=== PATIENT | female | born 1975 | race Caucasian/White ===

== ENCOUNTER 2024-01-04 10:46 | Outpatient (CLI) | payer BC, SELFPAY ==
--- NOTE | ~2024-01-04 | CT_ITS ---
CT of the Abdomen and Pelvis: Indication: Abdominal pain Technique: 2.5 mm axial scans were obtained through the abdomen and pelvis following intravenous adm inistration of 100 cc of Omnipaque 350. Dose reduction technique was used on this scan by utilizing a utomated exposure control and iterative reconstruction technique. The dose-length product (DLP) was 2 85.16 mGy-cm. Findings: Scans through the lung bases are unremarkable. The liver, spleen, pancreas, gallbladder, adrenals and kidneys are within normal limits. No evidence of aortic aneurysm. No lymphadenopathy. No bowel obstruction or bowel wall thickening. There is no evidence to suggest acute appendicitis. Images through the pelvis were performed. Urinary bladder unremarkable. 3.6 cm cystic mass present in the left pelvis. No ascites. Impression: 3.6 cm presumed left ovarian cyst, versus possibly left hydrosalpinx. Reviewed, dictated and finalized at [facility]. Impression: 3.6 cm presumed left ovarian cyst, versus possibly left hydrosalpinx.
== END 2024-01-04 10:47 | disposition home or self-care (01) ==
LOC: ANHIMG 10:51
PROVIDERS: Visit Provider Nurse Practitioner Obstetrics & Gynecology
DX: R10.30 Lower abdominal pain, unspecified (principal); N83.202 Unspecified ovarian cyst, left side
CPT/HCPCS: 74177; Q9967

== ENCOUNTER 2024-09-24 09:35 | Emergency (ER) | payer OTHER, SELFPAY ==
--- NOTE | ~2024-09-24 | US_ITS ---
EXAMINATION: US transvaginal DATE: 09/24/2024 11:25 INDICATION: Abnormal vaginal bleeding. Ovarian cyst. TECHNIQUE: Multiple endovaginal sonographic images of the pelvis were obtained. COMPARISON: None. FINDINGS: The retroverted uterus measures 8.5 x 5.5 x 5.1 cm. 2.4 cm mildly hypoechoic subserosal fibroid on th e left side of the uterine body. The endometrial complex is thickened measuring 19 mm in thickness. T he endometrial complex appears symmetric throughout the extent central endometrial stripe. There are a couple anechoic cervical nabothian cysts measuring up to 7 mm. The right ovary measures 4.6 x 2.6 x 2.2 cm. There are multiple anechoic cyst anechoic cysts/follicles at the right ovary measuring up to 2.0 cm. The left ovary is not visualized. There is normal vascular flow in the ovaries. There is a s mall amount of anechoic free fluid at the left adnexa. IMPRESSION: 1. Thickened endometrial complex most likely endometrial hyperplasia with differential including less likely endometrial polyp or malignancy. Consider hysteroscopy for further evaluation. 2. 2.4 cm subserosal fibroid. Reviewed, dictated and finalized at location A. UTER NETWORKING INSTRUCTOR ADJUNCT IMPRESSION: 1. Thickened endometrial complex most likely endometrial hyperplasia with diffe rential including less likely endometrial polyp or malignancy. Consider hystero scopy for further evaluation. 2. 2.4 cm subserosal fibroid.
[2024-09-24 09:55] VITALS: BP 108/76; PULSE 77; RESP 12; TEMP 36.7; O2SAT 100
--- NOTE | 2024-09-24 10:13 | ED.FEMALEGU ---
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 She states that she started her menstrual period 9 days ago . She reports her first 7 days of her cycle she had heavy bleeding with clots. Her bleeding has eased up over the past 48 hours but she reports fatigue. She reports only on her 2nd tampon today. She reports mild lower abdominal pain /10. She denies chest pain, shortness of breath. She denies history of anemia. Her last menstrual cycle was in june so she missed July which is abnormal for her. She has not called her mortgage assistant about her issues. MD elicited complaint: vaginal bleeding Pertinent past history: other (perimenopausal) Onset (ago): day(s) (9) Female Urogenital Radiation: Suprapubic Severity scale (1-10): 1 Quality of pain: cramping Vaginal bleeding: moderate Related Data Home Medications ?Medication ?Instructions ?Recorded ?Confirmed ?Last Taken ?Type No Home Medications 02/24/24 03/01/24 Unknown History Allergies Allergy/AdvReac Type Severity Reaction Status Date / Time No Known Allergies Allergy Verified 09/24/24 09:36 Review of Systems Review of Systems: All systems reviewed & are unremarkable except as noted in HPI and below Constitutional: Constitutional: Reports fatigue Cardiovascular: Cardiovascular: Denies chest pain, Denies radiating jaw, neck or arm pain and Denies slow heart rate Respiratory: Respiratory: Denies dyspnea Gastrointestinal: Gastrointestinal: Reports abdominal pain and Reports bloating Genitourinary: Genitourinary: Reports abnormal vaginal bleeding PMFSH Past Medical History Medical History (Updated 09/24/24 @ 12:09 by Brandy Garcia MD) Patient denies medical problems Social History Social History Smoking status: Never smoker Substance use type: does not use Living arrangements: with family Spiritual care concerns: No Exam Const: General: no acute distress and alert Nutritional Appearance: well nourished Orientation/consciousness: patient oriented x3 Limitations: no limitations HENMT: Head: normal to inspection Mouth: Yes Normal oral and palatal mucosa present, Yes lip normal and Yes moist mucous membranes Eyes: EOM: EOMs intact bilaterally Neck: Neck: normal visual inspection Resp: Effort & Inspection: normal respiratory effort Auscultation: clear to auscultation bilaterally Cardio: Rate: regular rate Rhythm: regular rhythm Heart sounds: no murmurs GI: GI Palp: Yes Soft to palpation, No Tenderness to palpation present (GI), No Guarding due to palpation present (GI) and No Rigid due to palpation Auscultation: normal bowel sounds : Speculum Exam - Cervix: normal appearance of the cervix and Cervical os closed Other: mobile application 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 US shows thickened endometrium which may be hormonal but she needs to call media supervisor tomorrow for evaluation as she may need biopy to rule out malignance. She states she understands and is at bedside. Date: 09/24/24 Time: 12:06 Vital Signs Vital signs: Vital Signs Temperature 98.0 F 09/24/24 09:55 Pulse Rate 77 09/24/24 09:55 Respiratory Rate 12 09/24/24 09:55 Blood Pressure 108/76 09/24/24 09:55 Pulse Oximetry 100 09/24/24 09:55 Temperature 98.0 F 09/24/24 09:55 Pulse Rate 77 09/24/24 09:55 Respiratory Rate 12 09/24/24 09:55 Blood Pressure 108/76 09/24/24 09:55 Pulse Oximetry 100 09/24/24 09:55 MDM - Female Genitourinary MDM Narrative Medical decision making narrative: Perimenopausal with irregular cycles, Will order CBC to evaluate for anemia. And also pelvic ultrasound; US shows thickened endometrial complex so needs outpatient follow up with media supervisor. no need for transfusion. Bleeding is minimal so patient stable discharge. Differential Diagnosis Differential diagnosis: Likely ovarian cyst, dysmenorrhea and other (perimenopause, anemia) Medical Records Attestation: I reviewed the patient's medical records. Lab Data Attestation: I reviewed the patient's lab results. 09/24/24 10:59 Labs: Lab Results 09/24/24 09/24/24 Range/Units 10:59 11:26 WBC 6.9 (4.5-10.0) K/mm3 RBC 3.83 L (4.2-5.4) M/mm3 Hgb 11.7 L (12.0-15.0) g/dL Hct 34.6 L (37.0-47.0) % MCV 90.3 (80-100) fl MCH 30.5 (26-34) pg MCHC 33.8 (32-36) g/dl RDW 12.3 (11.5-14.5) % Plt Count 204 (150-375) k/mm3 MPV 10.7 H (7.4-10.4) fl Immature Gran % (Auto) 0.4 (0-0.5) % Neut % (Auto) 59.0 (45.5-73.1) % Lymph % (Auto) 29.2 (18.3-44.2) % Winkler % (Auto) 7.1 (2.6-8.5) % Eos % (Auto) 3.6 (0-4.4) % Baso % (Auto) 0.7 (0.2-1.2) % Lymph # (Auto) 2.01 (0.9-3.2) K/mm3 Winkler # (Auto) 0.5 (0.1-0.6) K/mm3 Eos # (Auto) 0.3 (0-0.3) K/mm3 Baso # (Auto) 0.1 (0.0-0.1) K/mm3 Abs Immat Gran (auto) 0.03 (0.00-0.031) K/mm3 Absolute Neuts (auto) 4.1 (1.3-6.7) K/mm3 Absolute Nucleated RBC 0.000 (0.0-0.012) K/mm3 Nucleated RBC % 0.0 (0.0-0.2) % PT 13.5 (11.1-14.7) Seconds INR 1.0 APTT 26.8 (22.3-36.8) Seconds POC Urine HCG, Qual Negative (Negative) Imaging Data Radiologist's impression: ITS Impressions Transvaginal US 09/24/24 11:35 IMPRESSION: 1. Thickened endometrial complex most likely endometrial hyperplasia with differential including less likely endometrial polyp or malignancy. Consider hysteroscopy for further evaluation. 2. 2.4 cm subserosal fibroid. Discharge Plan Discharge Clinical Impression: Abnormal vaginal bleeding Patient Disposition: Home, Self-Care Condition: Stable Instructions: Antibiotic Form, Menorrhagia (ED) Additional Instructions: Call your mortgage assistant tomorrow to arrange for follow up regarding your abnormal vaginal bleeding Patient Language: Nepali Prescriptions: No Action No Home Medications Follow-up/Referrals: Man Connor MD [Physician] - PHYSICIAN,NATURAL GAS BASIS TRADER [Primary Care Provider] -
[2024-09-24 11:06] LABS: Basophils Absolute Auto 0.1 K/mm3 (0.0-0.1); Basophils Percent Auto 0.7 % (0.2-1.2); Eosinophils Absolute Auto 0.3 K/mm3 (0-0.3); Eosinophils Percent Auto 3.6 % (0-4.4); Hematocrit 34.6 % (37.0-47.0); Hemoglobin 11.7 g/dL (12.0-15.0); Immature Granulocyte Absolute 0.03 K/mm3 (0.00-0.031); Immature Granulocyte Percent A 0.4 % (0-0.5); Lymphocytes Absolute Auto 2.01 K/mm3 (0.9-3.2); Lymphocytes Percent Auto 29.2 % (18.3-44.2); Mean Corpuscular HGB Conc 33.8 g/dl (32-36); Mean Corpuscular Hemoglobin 30.5 pg (26-34); Mean Corpuscular Volume 90.3 fl (80-100); Mean Platelet Volume 10.7 fl (7.4-10.4); Monocytes Absolute Auto 0.5 K/mm3 (0.1-0.6); Monocytes Percent Auto 7.1 % (2.6-8.5); Neutrophils Absolute Auto 4.1 K/mm3 (1.3-6.7); Platelet Count Result 204 k/mm3 (150-375); Red Blood Count 3.83 M/mm3 (4.2-5.4); Red Cell Distribution Width 12.3 % (11.5-14.5); White Blood Count 6.9 K/mm3 (4.5-10.0)
[2024-09-24 11:23] LABS: Prothrombin Time 13.5 Seconds (11.1-14.7)
[2024-09-24 11:24] LABS: Partial Thromboplastin Time 26.8 Seconds (22.3-36.8)
[2024-09-24 11:28] LABS: BEDSIDEPREGUCG Negative (Negative)
--- OUTSIDE RECORDS SUMMARY | 2024-10-01 05:28 | XMS_ITS | Data Portability ---
Author Organization [facility] Address [address] [place] [address] Assessment Encounter Date Assessment Date Assessment LastModified by Organization Details LastModified Time 09/14/2023 09/14/2023 Will complete routine labs at f[facility]u visit. [facility] Not available 09/15/2023 08:06:34 Plan of Treatment Reminders Order Date Submit Date Provider Last Modified By Organization Details Last Modified Time Details Appointments None recorded. Lab None recorded. Referral gastroenter ologist referral 2022 023 [facility], [address], [place], [address], 4 13:01:45 Procedures None recorded. Surgeries None recorded. Imaging MAMMO, screening, bilateral [address] [facility], [address], [place] [address], [place], [address], 3 12:19:47 Medication Orders None recorded. Patient TargetsNo targets recorded. Patient InstructionsNo instructions recorded. 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 Procedure Notes None recorded. Medical Equipment None Reported. Allergies No known drug allergies Medications Not known to be on any medication Vitals Date Recorded Body height Body mass index (BMI) Body weight Oxygen saturation Oxygen saturation in Arterial blood by Pulse oximetry Heart rate Respiratory rate Body temperature Systolic blood pressure Diastolic blood pressure Provider Name and Address Organization Details Last Updated DateTime 3 170.18 cm 19.6 kg/m2 14446.0 5 g 99 % 99 % 78 /min 18 /min 97.1 [degF] 112 mm[Hg] 76 mm[Hg] ANGELES Lazaro [facility] 3 10:27:10 Date Recorded Body height Body mass index (BMI) Body weight Oxygen saturation Oxygen saturation in Arterial blood by Pulse oximetry Heart rate Body temperature Systolic blood pressure Diastolic blood pressure Provider Name and Address Organization Details Last Updated DateTime 3 170.18 cm 20.1 kg/m2 31266.6 2 g 97 % 97 % 90 /min 98.3 [degF] 111 mm[Hg] 76 mm[Hg] Guy Patel MA [facility] 3 11:42:10 Date Recorded Respiratory rate Provider Name a pa Address Organization Details Last Updated DateTime 09/14/2023 18 /min JENNYFER COX Attn: [address] [place], [address], [facility] 09/14/2023 12:06:50 Social History Question Answer Notes LastModified by Organizat ion Details LastModified Time Tobacco Smoking Status Never Smoker ANGELES Lazaro null, [facility] 05/12/2023 10:28:34 What Is Your Level Of Alcohol Consumption? None Information not available 05/12/2023 What Was The Date Of Your Most Recent Tobacco Screening? 09/14/2023 [email or web address] Information not available 09/14/2023 Do You Use Any Illicit Or Recreational Drugs? No Information not available 05/12/2023 Has Tobacco Cessation Counseling Been Provided? Yes Information not available 05/12/2023 On What Date Was Tobacco Cessation Counseling Provided? 05/12/2023 Information not available 05/12/2023 Do You Or Have You Ever Used Any Other Forms Of Tobacco Or Nicotine? No Information not available 05/12/2023 Sex: Unknown Functional Status None recorded. Mental Status None recorded. Family History Relationship Description Onset Age of this Age Resolved Age Notes LastModified by Organization Details LastModified Time Father No current problems or disability [email or web address] Not available 05/12 10:28:20 Mother No current problems or disability [email or web address] Not available 05/12 10:28:20 Medical History Condition Response Coronary Artery Disease N Other N Atrial Fibrillation N High Blood Pressure N Depression N COPD N Blood Clots N Anxiety Disorder N Muscle, Joint, or Bone Problems N Acid Reflux (GERD) N Cancer N Stroke N Headaches N Kidney or Bladder Problems N Eating Disorder N Skin Problems N Asthma N Allergies N Substance Abuse N Hepatitis N ADHD N High Cholesterol N Liver Disease N Schizophrenia N Thyroid Problems N GI Problems N Anemia N Heart Attack (PR) N Diabetes N Seizures/Epilepsy N Osteoporosis N Heart Failure N Gynecological History Statement/Question Response Date of Last Mammogram Flow Light Date of LMP 08/29/2023 Menses Monthly Y Date of Last Pap Smear Duration of Flow (days) 4 Current Control Method None Age at First Child 30 LMP Approximate Obstetrics History GPAL:G 6 P 0 0 1 5 Type Value Spontaneous 1 Living 5 Total 6 Past Encounters Encounter ID Performer Location Encounter Start Date Encounter Closed Date Diagnosis/Indication Diagnosis SNOMED-CT Code Diagnosis ICD10 Code Diagnosis Note [id number] TARA Banks NP [facility] [address] [place] [address] 05/12/2023 10:24:40 05/19/2023 10:16:09 History and physical examination, pre-employment 783642479 Z02.1 -safety discussed with patient-Im munization s are UTD per patient.-W ill make eye apt.-Diet and exercise discussed- Will make dental apt.-Phone numbers provided to establish PCP and complete PAPs and other lab screenings . Pt verbalized understand ing. Body mass index less than 20 245999301 Z68.1 [id number] JENNYFER COX [facility] [address] [place] [address] 09/14/2023 11:20:44 09/15/2023 12:19:46 Patient new to provider 7275090005 91144 Z76.89 establishi ng careno concernsno medication sPEx- nl Screening for malignant neoplasm of breast 265143277 Z12.39 due for mammo Screening for malignant neoplasm of cervix 783396141 Z12.4 will schedule pap Screening for malignant neoplasm of colon 664707462 Z12.11 has not had colonoscop y Depression screening 171 958243 Z13.31 PHQ 0 Left flank pain 72558048 9 R10.9 x3 morandomdu ll achec/o mass to left side of her abdomenno associated symptomsPE x- increased tissue/flu ctuance to Left lower flank, no palpable mass or nodule, non-TTPpro vided reassuranc ewill continue to monitor Health Concerns Section Related Observation LastModified by Organization Detai ls LastModified Time None Recorded Concern Status LastModified by Organization Details LastModified Time None Recorded Advance Directives Directive None Recorded Payers Encounter Date Sequence Insurance Name Policy Number Policy Rodríguez Covered Member ID Rodríguez Member ID Guarantor Name 09/14/2023 1 [place] [id number] Jose Hernandez [id number] Kayleen Hernandez Notes Date Note Type Note Provider Name and Address Organization Details Recorded Time 05/11/2023 text/html Pt here for a pr e employment physical. No concerns or complaints. LMP: 05/02/2023. Last PAP was in 2018. TARA Banks NP Attn: [address] [place], [address], [facility] 05/12/2023 11:19:34 09/14/2023 text/html Pt presents to establish care as a new patient. C/o lump on the left side of her abdomen x3 months. Denies any pain, redness, or increase in size. Describes as a random, dull ache. No urinary symptoms. Denies fever, chills, chest pain, SOB, n/v/d, abd pain, dizziness, weakness, or headaches. JENNYFER COX Attn: [address] [place], [address], [place] [facility] 09/15/2023 08:07:15 OBGyn Episode No OBEpisode recorded.
--- OUTSIDE RECORDS SUMMARY | 2024-10-01 05:28 | XMS_ITS | Continuity of Care Document ---
Author Organization [place] - [facility] , [facility], [place] Address [address] [place] [address] Assessment Encounter Date Assessment Date Assessment LastModified by Organization Details LastModified Time 09/24/2024 09/24/2024 patient will go to closest emergency room for further evaluation labs and ultrasound to evaluate 9 day history of heavy vaginal bleeding. Patient verbalized understanding of plan of care [email or web address] Not available 09/24/2024 10:04:03 Plan of Treatment Reminders Order Date Submit Date Provider Last Modified By Organization Details Last Modified Time Details Appointments None record ed. Lab None record ed. Referral None record ed. Procedures None record ed. Surgeries None record ed. Imaging None record ed. Medication Orders None record ed. Patient TargetsNo targets recorded. Patient InstructionsNo instructions recorded. Reason for Referral None Reported. Medical Equipment None Reported. Allergies No known drug allergies Medications Name Sig Start Date Stop Date Status Note LastModified by Organization Details LastModified Time praziquantel 600 mg tablet active [NOT TAKING ] Not Available Not Available Not Available Vitals None Recorded Social History None recorded. Functional Status None recorded. Mental Status None recorded. Family History Nothing Reported. Medical History No medical history recorded. Gynecological HistoryNo gynecological history recorded. Obstetrics History GPAL:G 0 P 0 0 0 0 Past Encounters Encounter ID Performer Location Encounter Start Date Encounter Closed Date Diagnosis/Indication Diagnosis SNOMED-CT Code Diagnosis ICD10 Code [id number] [facility] [place] [facility] [place] [address] 09/22/2024 14:49:00 09/24/2024 09:55:11 Patient not examined 885079461 Z53.9 [id number] [facility] [place] [facility] [place] [address] 09/24/2024 09:49:00 09/24/2024 10:04:24 Heavy episode of vaginal bleeding 440297903 N93.9 Health Concerns Section Related Observation LastModified by Organization Detai ls LastModified Time None Recorded Concern Status LastModified by Organization Details LastModified Time None Recorded Payers Encounter Date Sequence Insurance Name Policy Number Policy Rodríguez Covered Member ID Rodríguez Member ID Guarantor Name 09/24/2024 1 [facility] [id number] Kayleen Hernandez [id number] Kayleen Hernandez 09/24/2024 3 *SELF PAY* [id number] Kayleen Hernandez [id number] Kayleen Hernandez Notes Date Note Type Note Provider Name and Address Organization Details Recorded Time 09/24/2024 text/html Patient name , location, and phone number confirmed. Limitations of telemedicine evaluations reviewed, all questions answered, and verbal consent obtained to treat via secure video telemedicine interaction. Clinician attests that the clinician is physically located in the following state at the time of the visit: {{ [place]#}} Patient's current location is: {{home address on file*}} (home/workplace/ot her address) in {{ [place]#}} (state) [facility] [place] [address] [facility] [address], [place], [address], [place] [facility] 09/24/2024 10:04:20 OBGyn Episode No OBEpisode recorded.
--- OUTSIDE RECORDS SUMMARY | 2024-10-01 05:28 | XMS_ITS | Data Portability ---
Author Organization [place] - [facility] Address [address] [place] [address] Assessment Encounter Date Assessment Date Assessment LastModified by Organization Details LastModified Time 09/24/2024 09/24/2024 patient will go to closest emergency room for further evaluation labs and ultrasound to evaluate 9 day history of heavy vaginal bleeding. Patient verbalized understanding of plan of care [email or web address] Not available 09/24/2024 10:04:03 Plan of Treatment [...] Diagnosis/Indication Diagnosis SNOMED-CT Code Diagnosis ICD10 Code [id number] [facility] [place] [facility] [place] [address] 09/22/2024 14:49:00 09/24/2024 09:55:11 Patient not examined 052019715 Z53.9 [id number] [facility] [place] [facility] [place] [address] 09/24/2024 09:49:00 09/24/2024 10:04:24 Heavy episode of vaginal bleeding 892515460 N93.9 Health Concerns Section Related Observation LastModified by Organization Detai ls LastModified Time None Recorded Concern Status LastModified by Organization Details LastModified Time None Recorded Advance Directives Directive None Recorded Payers Encounter Date Sequence Insurance Name Policy Number Policy Rodríguez Covered Member ID Rodríguez Member ID Guarantor Name 09/22/2024 1 [facility] [id number] Kayleen Seehausen [id number] Kayleen Seehausen 09/22/2024 3 *SELF PAY* [id number] Kayleen Seehausen [id number] Kayleen Seehausen 09/24/2024 1 [facility] [id number] Kayleen Seehausen [id number] Kayleen Seehausen 09/24/2024 3 *SELF PAY* [id number] Kayleen Seehausen [id number] Kayleen Seehausen Notes Date Note Type Note Provider Name and Address Organization Details Recorded Time 09/22/2024 text/html VIDEO ISSUES, VISIT UNABLE TO BE COMPLETED [facility] [place] [address], [address], [facility] 09/24/2024 09:55:10 09/24/2024 text/html Patient name , location, and [...] in {{ [place]#}} (state) [facility] [place] [address], [address], [facility] 09/24/2024 10:04:20 OBGyn Episode No OBEpisode recorded.
--- OUTSIDE RECORDS SUMMARY | 2024-10-01 05:28 | XMS_ITS | Continuity of Care Document ---
Author Organization [place] - [facility] , [facility] Address [address] [place] [address] Assessment No assessment recorded. Plan of Treatment Reminders Order Date Submit [...] SNOMED-CT Code Diagnosis ICD10 Code Diagnosis Note [id number] [facility] [place] [facility] [address] [place] [address] 09/22/2024 14:49:00 09/24/2024 09:55:11 Patient not examined 437472451 Z53.9 Health Concerns Section Related Observation LastModified by Organization Detai ls LastModified Time None Recorded Concern Status LastModified by Organization Details LastModified Time None Recorded Payers Encounter Date Sequence Insurance Name Policy Number Policy Rodríguez Covered Member ID Rodríguez Member ID Guarantor Name 09/22/2024 1 [facility] [id number] Kayleen Hernandez [id number] Kayleen Hernandez 09/22/2024 3 *SELF PAY* [id number] Kayleen Hernandez [id number] Kayleen Hernandez Notes Date Note Type Note Provider Name and Address Organization Details Recorded Time 09/22/2024 text/html VIDEO ISSUES, VISIT UNABLE TO BE COMPLETED [facility] [place] [address] [facility] [address], [place], [address], [place] [facility] 09/24/2024 09:55:10 09/24/2024 text/html [...] in {{ [place]#}} (state) [facility] [place] [address] [facility] [address], [place], [address], [place] [facility] 09/24/2024 10:04:20 OBGyn Episode No OBEpisode recorded.
--- OUTSIDE RECORDS SUMMARY | 2024-10-01 05:28 | XMS_ITS | Data Portability ---
Author Organization [facility] Address [address] [place] [address] [place] [address] Care Team Providers Care Actor Understudy Name Role Phone RAMON CAICEDO Primary Care Provider [phone] Assessment Encounter Date Assessment Date Assessment LastModified by Organization Details LastModified Time 12/07/2023 12/07/2023 Annual gynecological exam performed. Patient will come back in a year unless there are new symptoms. Not available 12/07/2023 10:09:34 Plan of Treatment Reminders Order Date Submit Date Provider Last Modified By Organization Details Last Modified Time Details Appointments FOLLOW UP 2024 04:15P Lauri RAE MD Not available Not available Not available Lab test, urine 2023 024 [email or web address], [address], [address], [place], [address], 01/06/2024 17:27:17 ca 125, serum 2023 024 [facility] (Lab), [address] [place], [address], 01/25/2024 05:26:03 carcinoem bryonic Ag, quant, serum or plasma 2023 024 [facility] (Lab), [address], [place], [address], 01/25/2024 05:26:04 cancer Ag 19-9, serum or plasma 2023 024 [facility] (Lab), [address], [place], [address], 01/25/2024 05:26:02 Referral None recorded. Procedures None recorded. Surgeries None recorded. Imaging MAMMO, screening , bilateral [address], [address], [place], [address], 02/17/2024 15:14:59 CT, abdomen + pelvis, w/ contrast 2023 024 [facility], [address], [place], [address], 01/06/2024 17:44:32 US, pelvis, complete [address], [facility] [address], [place], [address], 01/18/2024 16:43:19 Medication Orders None recorded. Patient TargetsNo targets recorded. Patient InstructionsNo instructions recorded. Reason for Referral None Reported. 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 Elect agustín main d by Julianna barone , Kerrie Dumont MD on 2023 at 1:48 PM ----- ----- ----- ----- ----- ----- ----- ----- ----- ----- ----- ----- ----- ----- ----- ----- ----- ---- HPV RESUL TS: HPV mRNA E6/E7 : Posit alondra - HPV mRNA Detec hi HPV GENOT YPE 16 (JOE) : Not Detec hi HPV GENOT YPE 18/45 (JOE) : Not Detec hi NOTE: This high risk HPV mRNA assay detec ts fourt een high- risk HPV types (16, 18, 31, 33, 35, 39, 45, 51, 52, 56, 58, 59, 66, 68) witho ut diffe renti ation . This assay can diffe renti ate HPV 16 from HPV 18/45 , but does not diffe renti ate betwe en HPV 18 and HPV 45. A negat alondra HPV 16, 18/45 genot ype assay resul t does not exclu de the possi bilit y of cytol ogic abnor malit ies or of futur e or under lying KEATON 1, KEATON 3 or cance r. COMME NT: This speci men was revie wed by a Cytot echno logis t and/o r Patho logis t (as indic ated in this repor t) after evalu ation using the Thinp rep Imagi ng Syste m. CLINI BETO INFOR MATIO N: Menst rual Statu s: LMP (if appli cable ): Clini beto Histo ry/Pr eviou s Pap: Type of Neopl dana (if appli cable ): Signi licha t Clini beto Findi ngs: Other Histo ry: Hormo linda (if appli cable ): BARRY JONES FOLLO W-UP: Follo w up as warra nted, based on curre nt guide lines and indiv idual patie nt consi derat ions. Not Available [facility] (Lab) [address], [place], [address], 12/13/2023 14:52:57 01/06/20 24 01/14/2024 BIOPS Y, ENDOC ERVIC AL endocervical curettage histology Negati ve normal Not Available [facility] ([facility]) [address] , [place], [address], 01/14/2024 12:50:07 01/06/20 24 01/14/2024 BIOPS Y, ENDOC ERVIC AL results (A1) ENDOC ERVIX GROSS ING INFOR MATIO N: Recei amarilis in forma tyler on a ECC brush is a 1.6 cm aggre gate of pink- tinge d mucoi d/fib rinou s mater ial, total ly submi tted. A1-N DIAGN OSIS: Benig n ectoc ervic al and endoc ervic al tissu e. No intra epith elial lesio n. UNSP ABNOR MAL CYTOL OG FINDI NGS IN SPECM N FROM CERVI X UTERI (R87. 619) Not Available [facility] ([facility]) [address] , [place], [address], 01/14/2024 12:50:07 01/06/20 24 01/06/2024 pregn acosta test, urine HCG negati ve Not Available [place] [address], [place], [address], 01/06/2024 17:27:05 01/24/20 24 01/24/2024 CARBO HYDRA TE ANTIG EN 19-9 Ca 19-9 5 U/mL 0-35 This assay was perfo rmed using [employer] n reage nts and test kits. Value s obtai matt with other assay metho ds or kits canno t be used inter cook eably . Not Available [facility] (Lab) [address], [place], [address], 01/25/2024 05:26:02 01/24/20 24 01/24/2024 CA 125 Ca 125 9.0 units /mL 0.0-35 .0 This assay was perfo rmed using [employer] reage nts and test kits. Value s obtai matt with other assay metho ds or kits canno t be used inter cook eay . Not Available [facility] (Lab) [address], [place], [address], 01/25/2024 05:26:03 01/24/20 24 01/24/2024 CEA cea 0.9 NG/mL 0.0-3. 0 This assay was perfo rmed using [employer] reage nts and test kits. Value s obtai matt with other assay metho ds or kits canno t be used inter [facility] . Not Available [facility] (Lab) [address], [place], [address], 01/25/2024 05:26:04 01/06/20 24 01/04/2024 CT, abdom en + pelvi s, w/ contr ast No observ ation record ed. [id number] [facility] [address], [place], [address], 01/19/2024 00:28:32 Result Notes None recorded. Procedures Surgical History Date Name Laterality Status Provider Name and Address Organization Details Recorded Time 01/06/20 24 Colposcopy completed Nirali Buchanan, SHARON- [address], [place], [address], [place] [facility] 01/06/2024 17:43:35 01/06/20 24 Colposcopy completed Haleigh Vo [facility] 01/06/2024 17:26:15 01/06/20 24 Colposcopy completed Haleigh Vo [facility] 01/06/2024 17:26:35 12/07/19 24 Date of Last Pap Smear completed [facility] 12/28/2023 11:32:12 09/27/19 21 Date of Last Mammogram completed [facility] 12/07/2023 10:09:52 Dilation and Curettage completed [facility] 12/07/2023 10:10:07 Caesarean Section completed [facility] 12/07/2023 10:10:07 Imaging Results Imaging Date Name Status LastModified by Sal marley Details LastModified Time 01/04/2024 CT, abdomen + pelvis, w/ contrast completed [email or web address] [address], [address], 01/19/2024 00:28:32 Procedure Notes None recorded. Medical Equipment None Reported. Allergies No known drug allergies Medications Not known to be on any medication Vitals Date Recorded Body weight Body mass index (BMI) Body height Systolic blood pressure Diastolic blood pressure Provider Name and Address Organization Details Last Updated DateTime 12/07/2023 61158.57 g 20.3 kg/m2 170.18 cm 109 mm[Hg] 73 mm[Hg] [facility] 4 10:13:31 Date Recorded Body height Body mass index (BMI) Body weight Systolic blood pressure Diastolic blood pressure Provider Name and Address Organization Details Last Updated DateTime 12/28/2023 170.18 cm 20.4 kg/m2 01397.01 g 130 mm[Hg] 74 mm[Hg] [facility] 4 11:31:39 Date Recorded Body height Body mass index (BMI) Body weight Systolic blood pressure Diastolic blood pressure Provider Name and Address Organization Details Last Updated DateTime 01/06/2024 170.18 cm 20 kg/m2 23693.82 g 115 mm[Hg] 73 mm[Hg] [facility] 17:25:34 Date Recorded Body height Body mass index (BMI) Body weight Systolic blood pressure Diastolic blood pressure Provider Name and Address Organization Details Last Updated DateTime 01/24/2024 170.18 cm 20.1 kg/m2 02922.54 g 113 mm[Hg] 72 mm[Hg] Maris Aviles [facility] 17:04:34 Social History Question Answer Notes LastModified by Organizat ion Details LastModified Time Tobacco Smoking Status Never Smoker Yael Bernstein dov, [facility] 12/07/2023 10:16:07 What Is Your Level Of Alcohol Consumption? None Information not available 12/07/2023 Are You Blind Or Do You Have Difficulty Seeing? No Information n ot available 12/07/2023 What Is Your Level Of Caffeine Consumption? Heavy Information not available 12/07/2023 How Much Tobacco Do You Chew? None Information not available 12/07/2023 In The 14 Days Before Symptom Onset, Have You Had Close Contact With A Laboratory-confirm ed COVID-19 While That Case Was Ill? No Information n ot available 12/07/2023 In The 14 Days Before Symptom Onset, Have You Had Close Contact With A Person Who Is Under Investigation For COVID-19 While That Person Was Ill? No Information not available 12/07/2023 Have You Been To An Area Known To Be High Risk For COVID-19? No Information not available 12/07/2023 Are You Deaf Or Do You Have Serious Difficulty Hearing? No Information not available 12/07/2023 What Type Of Diet Are You Following? REGULAR Information n ot available 12/07/2023 What Is The Highest Grade Or Level Of School You Have Completed Or The Highest Degree You Have Received? 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 No Information not available 12/07/2023 Do You Use Protection During Sex? No Information not available 12/07/2023 Do You Use Your Seat Belt Or Car Seat Routinely? Yes Information not available 12/07/2023 Do You Have Smoke And Carbon Monoxide Detectors In Your Home? Yes Information not available 12/07/2023 How Much Tobacco Do You Smoke? No Information not available 12/07/2023 Do You Feel Stressed (tense, Restless, Nervous, Or Anxious, Or Unable To Sleep At Night)? [id number] Information not available 12/07/2023 Do You Use Any Illicit Or Recreational Drugs? No Information not available 12/07/2023 Do You Use Sunscreen Routinely? Yes Information not available 12/07/2023 Have You Used IV Drugs? No Information not available 12/07/2023 Sex: Unknown Functional Status Question Answer Note LastModified by Organizat ion Details LastModified Time Do you have difficulty walking or climbing stairs? No Information not available 12/07/2023 Are you able to walk? YESWOREST Information not available 12/07/2023 Are you able to care for yourself? Yes Information not available 12/07/2023 What is your exercise level? Moderate Information not available 12/07/2023 Mental Status None recorded. Family History Relationship Description Onset Age of this Age Resolved Age Notes LastModified by Organization Details LastModified Time Mother Disorder of thyroid gland Not available 2023 10:09:47 Maternal Grandmother Diabetes mellitus Not available 2023 10:09:47 Maternal Grandfather Heart disease Not available 2023 10:09:47 Medical History Condition Response No Past Medical History Y Gynecological History Statement/Question Response Date of Last Mammogram 09/27/2020 Date of LMP 12/27/2023 N Was last menstrual period normal Y STIs/STDs Y Desired Control Method None Abnormal Pap Yes On BCP's at Conception? N HPV Vaccine N Colposcopy 01/06/2024 Duration of Flow (days) 4 Current Control Method None Age at First Child 29 Are cycles usually normal Y Frequency of Cycle (Q days) 28 Sexually Active? Y Menses Monthly Y Age of first menstrual cycle 14 Date of Last Pap Smear 12/07/2023 Sexual Problems? N LMP Definite N 09/27/2004 Obstetrics History GPAL:G 6 P 5 0 1 5 Type Value Full Term 5 Spontaneous 1 Living 5 Total 6 Past Encounters Encounter ID Performer Location Encounter Start Date Encounter Closed Date Diagnosis/Indication Diagnosis SNOMED-CT Code Diagnosis ICD10 Code [id number] Nirali Buchanan [facility] [address],[place] [address] 12/07/2023 10:02:52 12/07/2023 10:39:52 Gynecologic examination 10416217 Z01.419 Screening mammography 24 857857 Z12.31 [id number] Nirali Buchanan [facility] [address],[place] [address] 12/28/2023 11:06:47 12/28/2023 12:09:58 Low grade squamous intraepithelial lesion on cervical Papanicolaou smear 6236261224 9105 R87.612 Lower abdominal pain 545 38309 R10.30 R10.2 [id number] Nirali Buchanan [facility] [address],[place] [address] 01/06/2024 17:02:27 01/06/2024 17:45:58 Screening procedure 10851382 Z13.9 Low grade squamous intraepithelial lesion on cervical Papanicolaou smear 3378938767 9105 R87.612 Pain in pelvis 17732846 R10.2 [id number] TABBY RAE MD [place] [address],[place] [address] 01/24/2024 16:50:53 01/25/2024 06:48:34 Cyst of left ovary 9435697162 4737791 N83.202 Health Concerns Section Related Observation LastModified by Organization Detai ls LastModified Time None Recorded Concern Status LastModified by Organization Details LastModified Time None Recorded Advance Directives Directive None Recorded Payers Encounter Date Sequence Insurance Name Policy Number Policy Rodríguez Covered Member ID Rodríguez Member ID Guarantor Name 12/07/2023 1 [place] [id number] Jose Hernandez [id number] Kayleen Hernandez 12/28/2023 1 [place] [id number] Jose Hernandez [id number] Kayleen Hernandez 01/06/2024 1 [place] [id number] Jose Ojedaen [id number] Kayleen Hernandez 01/24/2024 1 [place] [id number] Jose Hernandez [id number] Kayleen Hernandez Notes Date Note Type Note Provider Name and Address Organization Details Recorded Time 12/07/2023 text/html Annual GYNReport ed bypatient.History:n o gynecologic complaints Menstrual cycle:Normal menses Urinary symptoms:No hematuria; No incontinence Vulva:No genital lesion Vagina:Normal vaginal discharge Breast:No breast pain; No breast lump; No nipple discharge Current Contraception: control not practiced Sexual complaints:No sexual complaints; No pain during intercourse; Normal libido Menopausal Symptoms:No menopausal symptoms; Normal vaginal lubrication Psychological symptoms:No depression; No anxiety; No PMDD Preventive measures:Encourage self breast examination; Encourage regular exercise; Encourage no tobacco use; Encourage regular mammograms starting age 40; Followed with yearly pap smears; Needs to schedule mammogram [facility] Buch[facility] [address], [place], [address], [facility] 12/07/2023 10:37:08 12/28/2023 text/html Here today initially for colposcoy for LGSIL pap smear 2023. Her menstrual flow is too heavy for today's procedure. She also expresses concerns of abd discomfort and left lower abd/pelvic lump that has been there for at least a month. She is worried about risks for ovarian cancers/other issues.She previously went to pcp which told her probably nothing. Neg pain of flankNeg urinary sx'sNeg GI sx'sNeg N/V/F/C/DNeg Vag d/c, odor, irritation, itching DEAN Stahl [address], [place], [address], [facility] 12/28/2023 12:09:55 01/06/2024 text/html Here today for colposcopy for LGSIL pap smear. Nirali Buchanan, [facility] [address], [place], [address], [facility] 01/06/2024 17:45:15 01/24/2024 text/html Patient presents for follow up of 3.6cm ovarian cyst. She was previously seen at an outside office about 9 months ago for soft lump on L flank. The mass was not painful and now resolved at the same time she had a large amount of watery discharge. She reports some fatigue and early satiety, as well as bloating. She reports bowel changes with mucous small BM. She does report irregular bleeding over the past year, including 4 months out of the last year with 2 periods in a month. She also reports increased brain fog and concentration issues. No dysuria or hematuria. No pain with intercourse. She had an abdominal CT done to evaluate for any etiology of these symptoms. CT scan was unremarkable aside from a 3.6cm simple ovarian cyst vs dilated tube. She denies any history of [employer] problems. No family hx of colon or ovarian cancer; grandmother with breast cancer in her 70s. TABBY RAE MD [address], [place], [address], [facility] 01/24/2024 23:00:21 OBGyn Episode Ob Episode Information Episode Created Date Number of Fetuses Patient Bloodtype Patient rh Status Prepregnancy Weight lbs Domestic Partner Domestic Partner Phone Father Name Driver Utility Worker Status 12/07/19 24 1 CLOSED Fetus Data First Name Last Name Admitted to NICU Weight (g) Sex Living Outcome Pediatric Complications Fetus ID Race Codes Race Delivery Type M Full Term [id number] V Back Frank Calculation FRANK Calculation Method Initial Frank Date Initial Exam Date Initial Exam Provider Initial Ultrasound Date Last Menstrual Period Date Ultra Sound Weeks Gestation Conception by IVF Embryo Age at Transfer Date of Transfer 0 Eighteen To Twenty Week Frank Update Ultra Sound Date Fundal Height At Umbil Quickening Date Ultra Sound Latest Weeks Gestation Final Frank Confirmed By Final Frank Confirmed Date Final Frank Date Ultra Sound Latest Days Gestation 0 0 Menstrual History Last Menstrual Date Menses Monthly On Bcp Conception Prior Menses Frequency Hcg Plus Date Menarche Onset Age Delivery Information Delivery Date Delivery Type Labor Anesthesia Weeks Gestation Incision Type Labor Labor Length Hrs Delivered By Post Complications Tubal Sterilization Discharge Date Comments 2 Discharge Information Feeding Method Contraceptive Method Maternal HG B and HCT Levels Ob Episode Information Episode Created Date Number of Fetuses Patient Bloodtype Patient rh Status Prepregnancy Weight lbs Domestic Partner Domestic Partner Phone Father Name Driver Utility Worker Status 12/07/19 24 1 CLOSED Fetus Data First Name Last Name Admitted to NICU Weight (g) Sex Living Outcome Pediatric Complications Fetus ID Race Codes Race Delivery Type F Full Term [id number] Vaginal Delivery Frank Calculation FRANK Calculation Method Initial Frank Date Initial Exam Date Initial Exam Provider Initial Ultrasound Date Last Menstrual Period Date Ultra Sound Weeks Gestation Conception by IVF Embryo Age at Transfer Date of Transfer 0 Eighteen To Twenty Week Frank Update Ultra Sound Date Fundal Height At Umbil Quickening Date Ultra Sound Latest Weeks Gestation Final Frank Confirmed By Final Frank Confirmed Date Final Frank Date Ultra Sound Latest Days Gestation 0 0 Menstrual History Last Menstrual Date Menses Monthly On Bcp Conception Prior Menses Frequency Hcg Plus Date Menarche Onset Age Delivery Information Delivery Date Delivery Type Labor Anesthesia Weeks Gestation Incision Type Labor Labor Length Hrs Delivered By Post Complications Tubal Sterilization Discharge Date Comments 5 Discharge Information Feeding Method Contraceptive Method Maternal HG B and HCT Levels Ob Episode Information Episode Created Date Number of Fetuses Patient Bloodtype Patient rh Status Prepregnancy Weight lbs Domestic Partner Domestic Partner Phone Father Name Driver Utility Worker Status 12/07/19 24 1 CLOSED Fetus Data First Name Last Name Admitted to NICU Weight (g) Sex Living Outcome Pediatric Complications Fetus ID Race Codes Race Delivery Type F Full Term [id number] Vaginal Delivery Frank Calculation FRANK Calculation Method Initial Frank Date Initial Exam Date Initial Exam Provider Initial Ultrasound Date Last Menstrual Period Date Ultra Sound Weeks Gestation Conception by IVF Embryo Age at Transfer Date of Transfer 0 Eighteen To Twenty Week Frank Update Ultra Sound Date Fundal Height At Umbil Quickening Date Ultra Sound Latest Weeks Gestation Final Frank Confirmed By Final Frank Confirmed Date Final Frank Date Ultra Sound Latest Days Gestation 0 0 Menstrual History Last Menstrual Date Menses Monthly On Bcp Conception Prior Menses Frequency Hcg Plus Date Menarche Onset Age Delivery Information Delivery Date Delivery Type Labor Anesthesia Weeks Gestation Incision Type Labor Labor Length Hrs Delivered By Post Complications Tubal Sterilization Discharge Date Comments 6 Discharge Information Feeding Method Contraceptive Method Maternal HG B and HCT Levels Ob Episode Information Episode Created Date Number of Fetuses Patient Bloodtype Patient rh Status Prepregnancy Weight lbs Domestic Partner Domestic Partner Phone Father Name Driver Utility Worker Status 12/07/19 24 1 CLOSED Fetus Data First Name Last Name Admitted to NICU Weight (g) Sex Living Outcome Pediatric Complications Fetus ID Race Codes Race Delivery Type M Full Term [id number] Primary Frank Calculation FRANK Calculation Method Initial Frank Date Initial Exam Date Initial Exam Provider Initial Ultrasound Date Last Menstrual Period Date Ultra Sound Weeks Gestation Conception by IVF Embryo Age at Transfer Date of Transfer 0 Eighteen To Twenty Week Frank Update Ultra Sound Date Fundal Height At Umbil Quickening Date Ultra Sound Latest Weeks Gestation Final Frank Confirmed By Final Frank Confirmed Date Final Frank Date Ultra Sound Latest Days Gestation 0 0 Menstrual History Last Menstrual Date Menses Monthly On Bcp Conception Prior Menses Frequency Hcg Plus Date Menarche Onset Age Delivery Information Delivery Date Delivery Type Labor Anesthesia Weeks Gestation Incision Type Labor Labor Length Hrs Delivered By Post Complications Tubal Sterilization Discharge Date Comments 6 Discharge Information Feeding Method Contraceptive Method Maternal HG B and HCT Levels Ob Episode Information Episode Created Date Number of Fetuses Patient Bloodtype Patient rh Status Prepregnancy Weight lbs Domestic Partner Domestic Partner Phone Father Name Driver Utility Worker Status 12/07/19 24 1 CLOSED Fetus Data First Name Last Name Admitted to NICU Weight (g) Sex Living Outcome Pediatric Complications Fetus ID Race Codes Race Delivery Type F Full Term [id number] V Back Frank Calculation FRANK Calculation Method Initial Frank Date Initial Exam Date Initial Exam Provider Initial Ultrasound Date Last Menstrual Period Date Ultra Sound Weeks Gestation Conception by IVF Embryo Age at Transfer Date of Transfer 0 Eighteen To Twenty Week Frank Update Ultra Sound Date Fundal Height At Umbil Quickening Date Ultra Sound Latest Weeks Gestation Final Frank Confirmed By Final Frank Confirmed Date Final Frank Date Ultra Sound Latest Days Gestation 0 0 Menstrual History Last Menstrual Date Menses Monthly On Bcp Conception Prior Menses Frequency Hcg Plus Date Menarche Onset Age Delivery Information Delivery Date Delivery Type Labor Anesthesia Weeks Gestation Incision Type Labor Labor Length Hrs Delivered By Post Complications Tubal Sterilization Discharge Date Comments 7 Discharge Information Feeding Method Contraceptive Method Maternal HG B and HCT Levels Ob Episode Information Episode Created Date Number of Fetuses Patient Bloodtype Patient rh Status Prepregnancy Weight lbs Domestic Partner Domestic Partner Phone Father Name Driver Utility Worker Status 12/07/19 24 1 CLOSED Fetus Data First Name Last Name Admitted to NICU Weight (g) Sex Living Outcome Pediatric Complications Fetus ID Race Codes Race Delivery Type , Spontane ous [id number] Frank Calculation FRANK Calculation Method Initial Frank Date Initial Exam Date Initial Exam Provider Initial Ultrasound Date Last Menstrual Period Date Ultra Sound Weeks Gestation Conception by IVF Embryo Age at Transfer Date of Transfer 0 Eighteen To Twenty Week Frank Update Ultra Sound Date Fundal Height At Umbil Quickening Date Ultra Sound Latest Weeks Gestation Final Frank Confirmed By Final Frank Confirmed Date Final Frank Date Ultra Sound Latest Days Gestation 0 0 Menstrual History Last Menstrual Date Menses Monthly On Bcp Conception Prior Menses Frequency Hcg Plus Date Menarche Onset Age Delivery Information Delivery Date Delivery Type Labor Anesthesia Weeks Gestation Incision Type Labor Labor Length Hrs Delivered By Post Complications Tubal Sterilization Discharge Date Comments 0 Discharge Information Feeding Method Contraceptive Method Maternal HG B and HCT Levels
== END 2024-09-24 12:19 | disposition home or self-care (01) ==
PROVIDERS: Emergency Provider General Practice
DX: N93.9 Abnormal uterine and vaginal bleeding, unspecified (principal)
CPT/HCPCS: 36415; 76830; 81025; 85025; 85610; 85730; 99284